=== PATIENT | female | born 1980 | race Asian ===

== ENCOUNTER 2022-10-21 13:06 | Emergency (ER) | payer OTHER ==
[~2022-10-21] VITALS: Ht 144.8 cm; Wt 69.1 kg
[~2022-10-21 13:06] MED LIST: LEVO-72 PO
[2022-10-21] MEDS ORDERED: SODIUM CHLORIDE 0.9% 1,000 ML IV ONE (13:30)
[2022-10-21] MEDS ORDERED: KETOROLAC TROMETHAMINE 30 MG/ML VIAL IVP ONE (13:30)
[2022-10-21 14:09] LABS: BASOPHILS % (AUTO) 0.4 % (0.0-2.0); EOSINOPHILS % (AUTO) 0.9 % (1.0-6.0); HEMATOCRIT 36.9 % (36-46); HEMOGLOBIN 12.3 g/dL (12.0-16.0); LYMPHOCYTES # (AUTO) 1.9 K/uL (1.0-4.8); LYMPHOCYTES % (AUTO) 21.4 % (22.0-44.0); MEAN CORPUSCULAR HEMOGLOBIN 31.2 pg (26.0-34.0); MEAN CORPUSCULAR HGB CONC 33.3 G/dL (31.0-37.0); MEAN CORPUSCULAR VOLUME 94 fL (80-100); MONOCYTES # (AUTO) 0.9 K/uL (0.1-1.0); MONOCYTES % (AUTO) 10.6 % (2.0-9.0); NEUTROPHILS # (AUTO) 5.9 K/uL (1.8-7.7); NEUTROPHILS % (AUTO) 66.7 % (40.0-70.0); PLATELET COUNT (AUTO) 372 K/uL (150-450); RED BLOOD CELL COUNT(AUTO) 3.94 MIL/uL (4.00-5.20); RED CELL DISTRIBUTION WIDTH 12.6 % (11.5-14.5)
[2022-10-21 14:21] LABS: ANION GAP 11 mmol/L (8-16); CALCIUM, TOTAL 9.5 mg/dL (8.8-10.5); CARBON DIOXIDE 24 mmol/L (22-29); CHLORIDE 103 mmol/L (98-107); GLOMERULAR FILTR. RATE CALC > 60 mL/min (>60); GLUCOSE,RANDOM 103 mg/dL (70-110); POTASSIUM 3.9 mmol/L (3.5-5.1); SODIUM SERUM 138 mmol/L (136-145); UREA NITROGEN, BLOOD 8 mg/dL (7-18)
[2022-10-21 14:30] LABS: ALANINE AMINOTRANSFERASE 16 U/L (12-78); ALBUMIN 3.4 g/dL (3.4-5.0); ALKALINE PHOSPHATASE 75 U/L (46-116); ASPARTATE AMINOTRANSFERASE 12 U/L (15-37); BILIRUBIN,TOTAL 0.4 mg/dL (0.1-1.0); HCG,QUANTITATIVE < 1 mIU/mL (0-6); LIPASE 187 U/L (73-393); TOTAL PROTEIN, SERUM 9.2 g/dL (6.4-8.2)
[2022-10-21 14:57] LABS: APPEARANCE,URINE CLEAR (CLEAR); BILIRUBIN,URINE NEGATIVE (NEGATIVE); GLUCOSE, URINE (UA) NEGATIVE (NEGATIVE); KETONES,URINE NEGATIVE (NEGATIVE); LEUKOCYTE ESTERASE ,URINE TRACE (NEGATIVE); NITRATE,URINE NEGATIVE (NEGATIVE); OCCULT BLOOD,URINE NEGATIVE (NEGATIVE); PH,URINE 6.5 (5.0-8.0); PROTEIN,URINE TRACE mg/dL (NEGATIVE); SPECIFIC GRAVITIY, URINE 1.004 (1.003-1.030); UROBILINOGEN,URINE <=1.0 mg/dL (<=1.0)
[2022-10-21 15:07] LABS: BACTERIA,URINE None Seen /HPF (None Seen); RBC,URINE 0-2 /HPF (0-2); SQUAMOUS EPITHELIAL CELL,UR Few /LPF (None Seen)
[2022-10-21 17:01] VITALS: BP 143/87
[2022-10-21] MEDS ORDERED: IBUP-1492 PO (17:05)
[2022-10-21] MEDS ORDERED: TAMS-13 PO (17:05)
== END 2022-10-21 17:44 | disposition home or self-care (01) ==
LOC: EMS 13:23
DX: N23 Unspecified renal colic (principal); J45.909 Unspecified asthma, uncomplicated; I10 Essential (primary) hypertension; N15.9 Renal tubulo-interstitial disease, unspecified; Z98.890 Other specified postprocedural states
CPT/HCPCS: 99285; 74176; 96374; 96361; 80053; 81001; 83690; 84702; 85025; 36415; J1885; J7030

== ENCOUNTER 2023-07-21 09:52 | Inpatient (IN) | payer OTHER ==
[~2023-07-21] VITALS: Ht 152.4 cm; Wt 75.8 kg
[~2023-07-21 09:52] MED LIST changes: +IBUP-1492 PO; -LEVO-72 PO; +TAMS0.4C94 PO
[2023-07-21] MEDS ORDERED: 0.9% SODIUM CHLORIDE 10 ML SYRINGE IVP PRN (10:00)
[2023-07-21] MEDS ORDERED: SODIUM CHLORIDE 0.9% 2,150 ML IV ONE (10:00)
[2023-07-21] MEDS ORDERED: MORPHINE SULFATE 4 MG/ML SYRINGE IVP ONE (10:30)
[2023-07-21] MEDS ORDERED: PIPERACILLIN/TAZO 3.375 GM/D5W 50 ML IV ONE (10:30)
[2023-07-21] MEDS ORDERED: IOHEXOL 9 MG/ML 500 ML BOTTLE PO ONE (10:30)
[2023-07-21] MEDS ORDERED: ONDANSETRON HCL 4 MG/2 ML VIAL IVP ONE (10:30)
[2023-07-21] MEDS ORDERED: KETOROLAC TROMETHAMINE 30 MG/ML VIAL IVP ONE (10:30)
[2023-07-21 10:47] LABS: BASOPHILS % (AUTO) 0.4 % (0.0-2.0); EOSINOPHILS % (AUTO) 0 % (1.0-6.0); HEMATOCRIT 39.3 % (36-46); HEMOGLOBIN 13.1 g/dL (12.0-16.0); LYMPHOCYTES % (AUTO) 6.2 % (22.0-44.0); MEAN CORPUSCULAR HEMOGLOBIN 30.7 pg (26.0-34.0); MEAN CORPUSCULAR HGB CONC 33.2 G/dL (31.0-37.0); MEAN CORPUSCULAR VOLUME 93 fL (80-100); MONOCYTES # (AUTO) 1.4 K/uL (0.1-1.0); MONOCYTES % (AUTO) 9.3 % (2.0-9.0); NEUTROPHILS % (AUTO) 84.1 % (40.0-70.0); PLATELET COUNT (AUTO) 233 K/uL (150-450); RED BLOOD CELL COUNT(AUTO) 4.25 MIL/uL (4.00-5.20); RED CELL DISTRIBUTION WIDTH 12.7 % (11.5-14.5); WHITE BLOOD COUNT (AUTO) 15.4 K/uL (4.5-11.0)
[2023-07-21 10:57] LABS: APPEARANCE,URINE HAZY (CLEAR); BILIRUBIN,URINE NEGATIVE (NEGATIVE); COLOR,URINE LIGHT YELLOW (YELLOW); GLUCOSE, URINE (UA) NEGATIVE (NEGATIVE); KETONES,URINE TRACE mg/dL (NEGATIVE); LEUKOCYTE ESTERASE ,URINE SMALL (NEGATIVE); NITRATE,URINE NEGATIVE (NEGATIVE); OCCULT BLOOD,URINE TRACE (NEGATIVE); PROTEIN,URINE TRACE mg/dL (NEGATIVE); SPECIFIC GRAVITIY, URINE 1.015 (1.003-1.030); UROBILINOGEN,URINE <=1.0 mg/dL (<=1.0)
[2023-07-21 10:58] LABS: INR 1.1 (0.9-1.1)
[2023-07-21 11:00] LABS: ANION GAP 11 mmol/L (8-16); CARBON DIOXIDE 23 mmol/L (22-29); CHLORIDE 99 mmol/L (98-107); CREATININE 0.66 mg/dL (0.60-1.30); GLOMERULAR FILTR. RATE CALC > 60 mL/min (>60); GLUCOSE,RANDOM 98 mg/dL (70-110); POTASSIUM 3.6 mmol/L (3.5-5.1); SODIUM SERUM 133 mmol/L (136-145); UREA NITROGEN, BLOOD 8 mg/dL (7-18)
[2023-07-21 11:07] LABS: LACTIC ACID 0.8 mmol/L (0.4-2.0)
[2023-07-21 11:09] LABS: BACTERIA,URINE Moderate /HPF (None Seen); RBC,URINE None Seen /HPF (0-2); SQUAMOUS EPITHELIAL CELL,UR Few /LPF (None Seen)
[2023-07-21 11:15] LABS: ALANINE AMINOTRANSFERASE 19 U/L (12-78); ALBUMIN 3.8 g/dL (3.4-5.0); ALKALINE PHOSPHATASE 61 U/L (46-116); ASPARTATE AMINOTRANSFERASE 13 U/L (15-37); BILIRUBIN,TOTAL 0.7 mg/dL (0.1-1.0); LIPASE 27 U/L (16-77); TOTAL PROTEIN, SERUM 8.5 g/dL (6.4-8.2)
[2023-07-21] MEDS ORDERED: ACETAMINOPHEN 1000 MG/ISO-OSM 100 ML IV ONE ×2 (12:00)
[2023-07-21] MEDS ORDERED: IOHEXOL 350 MG/ML 100 ML VIAL ONE (12:01)
[2023-07-21] MEDS ORDERED: SODIUM CHLORIDE 0.9% 100 ML ONE (12:02)
[2023-07-21] MEDS ORDERED: ONDANSETRON HCL 4 MG/2 ML VIAL IVP PRN (14:15)
[2023-07-21] MEDS ORDERED: ZOLPIDEM TARTRATE 5 MG TABLET PO PRN (14:15)
[2023-07-21] MEDS ORDERED: SODIUM CHLORIDE 0.9% 1,000 ML IV ONE (14:15)
[2023-07-21] MEDS ORDERED: OxyCODONE HCL/ACETAMINOPHEN 5-325 MG TABLET PO PRN (14:15)
[2023-07-21] MEDS: MORPHINE SULFATE 2 MG/ML SYRINGE IVP PRN (14:34)
[2023-07-21] MEDS: PIPERACILLIN/TAZO 3.375 GM/D5W 50 ML IV SCH ×2 (16:30→22:01)
[2023-07-21 21:00] VITALS: BP 138/73; PULSE 98; RESP 20; TEMP 101
[2023-07-21] MEDS: DOCUSATE SODIUM 100 MG CAPSULE PO SCH (22:01)
[2023-07-21] MEDS: ACETAMINOPHEN 325 MG TABLET PO PRN (22:12)
[2023-07-22] VITALS (7 sets, daily range): BP systolic 100–134; BP diastolic 56–89; PULSE 84–92; RESP 16–18; TEMP 97.8–100
[2023-07-22 01:14] LABS: INFLUENZA A-RTPCR,COMBO NEGATIVE (NEGATIVE); INFLUENZA B-RTPCR,COMBO NEGATIVE (NEGATIVE); RESPIRATORY SYNCYTIAL VRS-PCR NEGATIVE (NEGATIVE); SARS COVID19 RTPCR, COMBO NEGATIVE (NEGATIVE)
[2023-07-22] MEDS: PIPERACILLIN/TAZO 3.375 GM/D5W 50 ML IV SCH ×4 (04:08→23:47)
[2023-07-22] MEDS: FAMOTIDINE 20 MG TABLET PO SCH (09:30)
[2023-07-22] MEDS: DOCUSATE SODIUM 100 MG CAPSULE PO SCH ×2 (09:31→20:59)
[2023-07-22] MEDS: ACETAMINOPHEN 325 MG TABLET PO PRN ×2 (09:35→14:40)
[2023-07-22] MEDS: MORPHINE SULFATE 2 MG/ML SYRINGE IVP PRN (13:19)
[2023-07-22 13:49] LABS: APPEARANCE,URINE CLEAR (CLEAR); BILIRUBIN,URINE NEGATIVE (NEGATIVE); COLOR,URINE LIGHT YELLOW (YELLOW); GLUCOSE, URINE (UA) NEGATIVE (NEGATIVE); LEUKOCYTE ESTERASE ,URINE NEGATIVE (NEGATIVE); NITRATE,URINE NEGATIVE (NEGATIVE); OCCULT BLOOD,URINE NEGATIVE (NEGATIVE); PH,URINE 6.5 (5.0-8.0); PROTEIN,URINE TRACE mg/dL (NEGATIVE); SPECIFIC GRAVITIY, URINE 1.011 (1.003-1.030); UROBILINOGEN,URINE <=1.0 mg/dL (<=1.0)
[2023-07-23] MEDS: PIPERACILLIN/TAZO 3.375 GM/D5W 50 ML IV SCH ×4 (05:01→22:34)
[2023-07-23 05:35] VITALS: BP 121/57; PULSE 89; RESP 18; TEMP 98.2
[2023-07-23] MEDS: FAMOTIDINE 20 MG TABLET PO SCH (08:34)
[2023-07-23] MEDS: DOCUSATE SODIUM 100 MG CAPSULE PO SCH ×2 (08:34→19:56)
[2023-07-23] MEDS: ACETAMINOPHEN 325 MG TABLET PO PRN ×2 (08:34→19:56)
[2023-07-23 08:42] VITALS: BP 110/62; PULSE 84; RESP 20; TEMP 98.5
[2023-07-23 15:40] VITALS: BP 106/59; PULSE 80; RESP 19; TEMP 98.6
[2023-07-23 19:54] VITALS: BP 122/77; PULSE 88; RESP 18; TEMP 100.3
[2023-07-24] MEDS: ACETAMINOPHEN 325 MG TABLET PO PRN ×2 (01:19→16:33)
[2023-07-24 05:13] VITALS: BP 129/85; PULSE 72; RESP 20; TEMP 98.3
[2023-07-24] MEDS: PIPERACILLIN/TAZO 3.375 GM/D5W 50 ML IV SCH ×4 (05:15→22:43)
[2023-07-24 07:55] VITALS: BP 120/80; PULSE 75; RESP 20; TEMP 98.3
[2023-07-24] MEDS: DOCUSATE SODIUM 100 MG CAPSULE PO SCH ×2 (08:32→20:11)
[2023-07-24] MEDS: FAMOTIDINE 20 MG TABLET PO SCH (08:32)
[2023-07-24 11:58] LABS: BASOPHILS % (AUTO) 0.2 % (0.0-2.0); EOSINOPHILS % (AUTO) 0.9 % (1.0-6.0); HEMATOCRIT 33.7 % (36-46); HEMOGLOBIN 11.4 g/dL (12.0-16.0); LYMPHOCYTES # (AUTO) 0.9 K/uL (1.0-4.8); LYMPHOCYTES % (AUTO) 11.6 % (22.0-44.0); MEAN CORPUSCULAR HEMOGLOBIN 31.4 pg (26.0-34.0); MEAN CORPUSCULAR HGB CONC 33.7 G/dL (31.0-37.0); MEAN CORPUSCULAR VOLUME 93 fL (80-100); MONOCYTES # (AUTO) 0.7 K/uL (0.1-1.0); MONOCYTES % (AUTO) 9.2 % (2.0-9.0); NEUTROPHILS # (AUTO) 5.9 K/uL (1.8-7.7); NEUTROPHILS % (AUTO) 78.1 % (40.0-70.0); PLATELET COUNT (AUTO) 303 K/uL (150-450); RED BLOOD CELL COUNT(AUTO) 3.62 MIL/uL (4.00-5.20); RED CELL DISTRIBUTION WIDTH 12.5 % (11.5-14.5); WHITE BLOOD COUNT (AUTO) 7.5 K/uL (4.5-11.0)
[2023-07-24 12:11] LABS: ANION GAP 5 mmol/L (8-16); CARBON DIOXIDE 28 mmol/L (22-29); CHLORIDE 103 mmol/L (98-107); CREATININE 0.62 mg/dL (0.60-1.30); GLOMERULAR FILTR. RATE CALC > 60 mL/min (>60); GLUCOSE,RANDOM 111 mg/dL (70-110); SODIUM SERUM 136 mmol/L (136-145); UREA NITROGEN, BLOOD 6 mg/dL (7-18)
[2023-07-24 12:16] LABS: ALANINE AMINOTRANSFERASE 14 U/L (12-78); ALBUMIN 2.9 g/dL (3.4-5.0); ALKALINE PHOSPHATASE 67 U/L (46-116); ASPARTATE AMINOTRANSFERASE 10 U/L (15-37); BILIRUBIN,TOTAL 0.3 mg/dL (0.1-1.0); TOTAL PROTEIN, SERUM 7.8 g/dL (6.4-8.2)
[2023-07-24 16:56] VITALS: BP 116/73; PULSE 86; RESP 20; TEMP 100.2
[2023-07-24 19:26] VITALS: BP 121/72; PULSE 90; RESP 18; TEMP 98
[2023-07-25 05:05] VITALS: BP 124/75; PULSE 80; RESP 20; TEMP 98.6
[2023-07-25] MEDS: PIPERACILLIN/TAZO 3.375 GM/D5W 50 ML IV SCH ×2 (05:21→11:36)
[2023-07-25 07:22] LABS: BASOPHILS % (AUTO) 0.3 % (0.0-2.0); EOSINOPHILS % (AUTO) 1.2 % (1.0-6.0); HEMATOCRIT 36.4 % (36-46); HEMOGLOBIN 12.3 g/dL (12.0-16.0); LYMPHOCYTES % (AUTO) 13.2 % (22.0-44.0); MEAN CORPUSCULAR HEMOGLOBIN 31.2 pg (26.0-34.0); MEAN CORPUSCULAR HGB CONC 33.7 G/dL (31.0-37.0); MEAN CORPUSCULAR VOLUME 93 fL (80-100); MONOCYTES # (AUTO) 0.7 K/uL (0.1-1.0); MONOCYTES % (AUTO) 9.8 % (2.0-9.0); NEUTROPHILS # (AUTO) 5.5 K/uL (1.8-7.7); NEUTROPHILS % (AUTO) 75.5 % (40.0-70.0); PLATELET COUNT (AUTO) 356 K/uL (150-450); RED BLOOD CELL COUNT(AUTO) 3.93 MIL/uL (4.00-5.20); RED CELL DISTRIBUTION WIDTH 12.4 % (11.5-14.5); WHITE BLOOD COUNT (AUTO) 7.2 K/uL (4.5-11.0)
[2023-07-25 08:11] LABS: ALANINE AMINOTRANSFERASE 16 U/L (12-78); ALBUMIN 3.1 g/dL (3.4-5.0); ALKALINE PHOSPHATASE 80 U/L (46-116); ANION GAP 10 mmol/L (8-16); ASPARTATE AMINOTRANSFERASE 10 U/L (15-37); BILIRUBIN,TOTAL 0.4 mg/dL (0.1-1.0); CALCIUM, TOTAL 9.2 mg/dL (8.8-10.5); CARBON DIOXIDE 26 mmol/L (22-29); CHLORIDE 101 mmol/L (98-107); CREATININE 0.78 mg/dL (0.60-1.30); GLOMERULAR FILTR. RATE CALC > 60 mL/min (>60); GLUCOSE,RANDOM 87 mg/dL (70-110); POTASSIUM 4.1 mmol/L (3.5-5.1); SODIUM SERUM 137 mmol/L (136-145); TOTAL PROTEIN, SERUM 8.3 g/dL (6.4-8.2); UREA NITROGEN, BLOOD 6 mg/dL (7-18)
[2023-07-25 08:31] VITALS: BP 129/73; PULSE 78; RESP 20; TEMP 99.3
[2023-07-25] MEDS: DOCUSATE SODIUM 100 MG CAPSULE PO SCH (08:40)
[2023-07-25] MEDS: FAMOTIDINE 20 MG TABLET PO SCH (08:40)
[2023-07-25] MEDS ORDERED: LEVO750T68 PO (13:14)
[2023-07-25] MEDS ORDERED: LEVOFLOXACIN 750 MG TABLET PO ONE (13:15)
[2023-07-25 15:28] VITALS: BP 138/90; PULSE 86; RESP 20; TEMP 98.2
== END 2023-07-25 16:45 | disposition home or self-care (01) | DRG 872 ==
LOC: EMS 09:52 → AHU 12:57 → 5S 18:54 → 6N 07-22 20:00
PROVIDERS: ADMIT Internal Medicine; ATTEND Internal Medicine
DX: A41.9 Sepsis, unspecified organism (principal); N12 Tubulo-interstitial nephritis, not specified as acute or chronic; I10 Essential (primary) hypertension; Z20.822 Contact with and (suspected) exposure to COVID-19; J45.909 Unspecified asthma, uncomplicated
CPT/HCPCS: 0241U; 71045; 74177; 80053; 81001; 81003; 83605; 83690; 84145; 84703; 85025; 85610; 87040; 87086; 87186; 93005; 99291; J0131; J1885; J2270; J2405; J2543; J7050; Q9967; 36415-L1; 36415-TC